=== PATIENT | female | born 1950 | race Caucasian/White ===

== ENCOUNTER 2023-07-04 08:35 | Outpatient (CLI) | payer MEDICARE | END 2023-07-04 08:36 | disposition home or self-care (01) | LOC: CSHCT 08:35 | PROVIDERS: ATTEND Internal Medicine Cardiovascular Disease | DX: I77.89 Other specified disorders of arteries and arterioles (principal); I77.810 Thoracic aortic ectasia; I70.0 Atherosclerosis of aorta; I51.7 Cardiomegaly; I25.10 Atherosclerotic heart disease of native coronary artery without angina pectoris; I25.84 Coronary atherosclerosis due to calcified coronary lesion; K44.9 Diaphragmatic hernia without obstruction or gangrene | CPT/HCPCS: 71275; 82565 ==

== ENCOUNTER 2024-06-08 08:51 | Outpatient (CLI) | payer MEDICARE, OTHER ==
[~2024-06-08 08:51] MED LIST: Iopamidol 370 76% 100 ML VIAL ONE
== END 2024-06-08 08:52 | disposition home or self-care (01) ==
LOC: CSHCT 08:51
PROVIDERS: ATTEND Internal Medicine Cardiovascular Disease
DX: I77.810 Thoracic aortic ectasia (principal); I70.0 Atherosclerosis of aorta; I51.7 Cardiomegaly; I25.10 Atherosclerotic heart disease of native coronary artery without angina pectoris; I25.84 Coronary atherosclerosis due to calcified coronary lesion; K44.9 Diaphragmatic hernia without obstruction or gangrene; I50.22 Chronic systolic (congestive) heart failure
CPT/HCPCS: 36415; 71275; 80053; 80061; 82565 ×2; 85025; Q9967